=== PATIENT | female | born 1990 | race Caucasian/White ===

== ENCOUNTER 2017-05-03 08:10 | Inpatient (IN) | payer OTHER ==
[2017-05-03] MEDS: DEXTROSE 5%-LACTATED RINGERS 1,000 ML IV SCH (08:15)
[2017-05-03] MEDS ORDERED: AMPICILLIN - 2 GM in SODIUM CHLORIDE 100 ML IVPB ONE (08:30)
[2017-05-03] MEDS: D5W-LR W/ 20 UNITS OXYTOCIN 1,000 ML IV SCH (08:46)
[2017-05-03 09:17] VITALS: BMI 22.6
[2017-05-03] MEDS ORDERED: DEXTROSE 5%-LACTATED RINGERS 1,000 ML IV SCH (09:30)
[2017-05-03] MEDS ORDERED: BISACODYL 10 MG SUPP.RECT RC PRN (09:32)
[2017-05-03] MEDS ORDERED: BENZOCAINE 28 GM HEMORRHOIDAL OINTMENT TP PRN (09:32)
[2017-05-03] MEDS ORDERED: BENZOCAINE 20% 57 GM BOTTLE TP PRN (09:32)
[2017-05-03] MEDS ORDERED: WITCH HAZEL 50% (TUCKS) 40 PAD/JAR PAD TP PRN (09:32)
[2017-05-03] MEDS ORDERED: METHYLERGONOVINE MALEATE 0.2 MG/1 ML AMP IM PRN (09:32)
--- NOTE | 2017-05-03 09:38 | HP ---
Past Medical History - Admission Chief Complaint: Labor pain History of Present Illness: 26 yo @ 39 weeks gestation, EDC 05/09/17, brought by EMT in active labor. She admits to rupture of membrane at 3am. History Source: Patient Limitations to Obtaining History: No Limitations - Past Medical History ...: 4 ...Para: 3 ...EDC by [facility]: 05/09/17 - Past Surgical History Past Surgical History: Yes: None Hx Myomectomy: No Hx Transabdominal Cerclage: No - Smoking History Smoking history: Never smoked Have you smoked in the past 12 months: No - Alcohol/Substance Use Hx Alcohol Use: No History of Substance Use: reports: None - Social History History of Recent Travel: No Home Medications - Allergies Allergies/Adverse Reactions: Allergies Allergy/AdvReac Type Severity Reaction Status Date / Time No Known Drug Allergies Allergy Verified 05/03/17 09:03 Family Disease History - Family Disease History Family History: Unremarkable Review of Systems - Review of Systems Constitutional: reports: No Symptoms Eyes: reports: No Symptoms HENT: reports: No Symptoms Neck: reports: No Symptoms Cardiovascular: reports: No Symptoms Respiratory: reports: No Symptoms Gastrointestinal: reports: No Symptoms Genitourinary: reports: Pain, Other (Rupture of membrane) Breasts: reports: No Symptoms Reported Musculoskeletal: reports: No Symptoms Integumentary: reports: No Symptoms Neurological: reports: No Symptoms Endocrine: reports: No Symptoms Hematology/Lymphatic: reports: No Symptoms Psychiatric: reports: No Symptoms Pain Intensity: 9 Physical Exam - Maternity Vital Signs: Vital Signs Temperature 98.1 F 05/03/17 08:30 Pulse Rate 59 L 05/03/17 08:30 Respiratory Rate 18 05/03/17 08:30 Blood Pressure 142/73 05/03/17 08:30 O2 Sat by Pulse Oximetry (%) Constitutional: Yes: Well Nourished Eyes: Yes: Conjunctiva Clear HENT: Yes: Atraumatic Neck: Yes: Supple Cardiovascular: Yes: Regular Rate and Rhythm Lungs: Clear to auscultation - Abdominal Exam/OB Number of Fetuses: Single Presentation: Vertex Contractions: Yes - Vaginal Exam/OB Dilatation (cm): Fully Effacement (%): 100 Amniotic Membrane Status: Ruptured Amniotic Fluid: Yes: Clear Station: 0 - Physical Exam ...Motor Strength: WNL Psychiatric: Yes: Alert, Oriented Problem List - Problems (1) Status post normal vaginal delivery Code(s): [id number] - Assessment/Plan Active Labor Admit to L&D Anticipate
[2017-05-03 09:39] LABS: BASOPHIL 0.2 % (0-2.0); EOSINOPHIL 0.1 % (0-4.5); MCH 26.9 pg (25.7-33.7); MCHC 32.3 g/dl (32.0-36.0); MEAN CELL VOLUME 83.3 fl (80-96); NEUTROPHILS 79.3 % (42.8-82.8); PLATELET COUNT 138 K/MM3 (134-434); RDW 15.5 % (11.6-15.6); WHITE BLOOD COUNT 7.9 K/mm3 (4.0-10.0)
--- NOTE | 2017-05-03 09:39 | PN ---
Delivery - Delivery Vaginal Delivery: Spontaneous Episiotomy/Laceration: 1st degree EBL (cc): 300 Delivery, Single - [place] Feeding Plan Initial Plan: Elected not to breastfeed exclusively throughout hospitalization Remarks - Remarks Remarks: Normal spontaneous vaginal delivery of a live . Nose / Oropharynx suctioned @ perineum. Cord clamped and cut. Placenta expelled spontaneously intact.
[2017-05-03 09:56] LABS: INR 0.96 (0.82-1.09); PROTHROMBIN TIME (PATIENT) 10.6 SEC (9.98-11.88)
[2017-05-03 09:59] LABS: ACTIVATED PTT 22.1 SECONDS (26.9-34.4)
[2017-05-03 10:02] LABS: ANION GAP 9 (8-16); CALCIUM 8.1 mg/dL (8.5-10.1); CO2 23 mmol/L (21-32); CREATININE 0.6 mg/dL (0.55-1.02); GLUCOSE,RANDOM 150 mg/dL (74-106)
[2017-05-03 10:24] LABS: HIV 1 & 2 AB NEGATIVE; HIV 1 AGp24 NEGATIVE
[2017-05-03] MEDS: IBUPROFEN 600 MG TABLET (FP) PO PRN ×2 (10:30→17:38)
[2017-05-03] MEDS: FERROUS SO4 325 MG TABLET (FP) PO SCH ×2 (11:34→17:13)
[2017-05-03] MEDS: PRENATAL VITAMINS W/ FOLIC ACID TABLET (FP) PO SCH (11:34)
[2017-05-03] MEDS ORDERED: AMPICILLIN - 1 GM in SODIUM CHLORIDE 100 ML IVPB SCH (12:30)
[2017-05-03] MEDS: ACETAMINOPHEN 325 MG TABLET (FP) PO PRN (17:40)
[2017-05-04] MEDS: IBUPROFEN 600 MG TABLET (FP) PO PRN (02:57)
[2017-05-04] MEDS: ACETAMINOPHEN 325 MG TABLET (FP) PO PRN (02:58)
[2017-05-04 07:01] LABS: BASOPHIL 0.8 % (0-2.0); EOSINOPHIL 0.9 % (0-4.5); MCH 27.1 pg (25.7-33.7); MCHC 32.8 g/dl (32.0-36.0); MEAN CELL VOLUME 82.5 fl (80-96); NEUTROPHILS 67.8 % (42.8-82.8); PLATELET COUNT 150 K/MM3 (134-434); RDW 15.9 % (11.6-15.6); WHITE BLOOD COUNT 9.3 K/mm3 (4.0-10.0)
--- NOTE | 2017-05-04 07:26 | PN ---
Post Progress Note Post Day: 1 Type of Delivery: Vital Signs: Vital Signs Temperature 98.6 F 05/04/17 03:27 Pulse Rate 66 05/04/17 03:27 Respiratory Rate 18 05/04/17 03:27 Blood Pressure 108/66 05/04/17 03:27 O2 Sat by Pulse Oximetry (%) Breast Exam: Yes: Soft Uterus: Yes: Fundus Firm Abdomen/GI: Yes: Abdomen soft Lochia: Yes: Rubra Lochia, amount: Small Extremities: Yes: Calves non-tender Perineum: Yes: Intact Activity: Ambulating - Labs Labs: CBC WBC 9.3 K/mm3 (4.0-10.0) 05/04/17 06:25 RBC 3.19 M/mm3 (3.60-5.2) L 05/04/17 06:25 Hgb 8.6 GM/dL (10.7-15.3) L 05/04/17 06:25 Hct 26.3 % (32.4-45.2) L 05/04/17 06:25 MCV 82.5 fl (80-96) 05/04/17 06:25 MCH 27.1 pg (25.7-33.7) 05/04/17 06:25 MCHC 32.8 g/dl (32.0-36.0) 05/04/17 06:25 RDW 15.9 % (11.6-15.6) H 05/04/17 06:25 Plt Count 150 K/MM3 (134-434) 05/04/17 06:25 MPV 11.0 fl (7.5-11.1) 05/04/17 06:25 Neutrophils % 67.8 % (42.8-82.8) 05/04/17 06:25 Lymphocytes % 25.7 % (8-40) D 05/04/17 06:25 Monocytes % 4.8 % (3.8-10.2) 05/04/17 06:25 Eosinophils % 0.9 % (0-4.5) D 05/04/17 06:25 Basophils % 0.8 % (0-2.0) D 05/04/17 06:25 Assessment/Plan as above oob reg diet iron
[2017-05-04] MEDS: FERROUS SO4 325 MG TABLET (FP) PO SCH ×3 (08:16→17:38)
[2017-05-04] MEDS: PRENATAL VITAMINS W/ FOLIC ACID TABLET (FP) PO SCH (10:55)
[2017-05-04] MEDS: DEXTROSE 5%-LACTATED RINGERS 1,000 ML IV SCH (12:28)
[2017-05-04] MEDS: D5W-LR W/ 20 UNITS OXYTOCIN 1,000 ML IV SCH (12:29)
[2017-05-04] MEDS ORDERED: SENNOSIDES/DOCUSATE COMBO (SENNA PLUS) TABLET (UD) PO PRN (22:00)
[2017-05-05 08:55] VITALS: BP 107/65; PULSE 60; TEMP 98.2
[2017-05-05] MEDS: FERROUS SO4 325 MG TABLET (FP) PO SCH ×2 (09:59→11:39)
[2017-05-05] MEDS: PRENATAL VITAMINS W/ FOLIC ACID TABLET (FP) PO SCH (09:59)
[2017-05-05] MEDS: IBUPROFEN 600 MG TABLET (FP) PO PRN (10:01)
[2017-05-05] MEDS: ACETAMINOPHEN 325 MG TABLET (FP) PO PRN (10:02)
--- NOTE | 2017-05-05 11:45 | PN ---
Post Progress Note - Subjective Subjective: no complains Post Day: 2 Type of Delivery: Vital Signs: Vital Signs Temperature 98.2 F 05/05/17 08:54 Pulse Rate 60 05/05/17 08:54 Respiratory Rate 20 05/05/17 08:54 Blood Pressure 107/65 05/05/17 08:54 O2 Sat by Pulse Oximetry (%) 98 05/04/17 09:00 Breast Exam: Yes: Soft. No: Engorged Uterus: Yes: Fundus Firm, Fundus below umbilicus Abdomen/GI: Yes: Tolerating PO Lochia: Yes: Rubra Lochia, amount: Moderate Extremities: Yes: Calves non-tender Perineum: Yes: Intact Activity: Ambulating - Labs Labs: CBC WBC 9.3 K/mm3 (4.0-10.0) 05/04/17 06:25 RBC 3.19 M/mm3 (3.60-5.2) L 05/04/17 06:25 Hgb 8.6 GM/dL (10.7-15.3) L 05/04/17 06:25 Hct 26.3 % (32.4-45.2) L 05/04/17 06:25 MCV 82.5 fl (80-96) 05/04/17 06:25 MCH 27.1 pg (25.7-33.7) 05/04/17 06:25 MCHC 32.8 g/dl (32.0-36.0) 05/04/17 06:25 RDW 15.9 % (11.6-15.6) H 05/04/17 06:25 Plt Count 150 K/MM3 (134-434) 05/04/17 06:25 MPV 11.0 fl (7.5-11.1) 05/04/17 06:25 Neutrophils % 67.8 % (42.8-82.8) 05/04/17 06:25 Lymphocytes % 25.7 % (8-40) D 05/04/17 06:25 Monocytes % 4.8 % (3.8-10.2) 05/04/17 06:25 Eosinophils % 0.9 % (0-4.5) D 05/04/17 06:25 Basophils % 0.8 % (0-2.0) D 05/04/17 06:25 Assessment/Plan Anemia stable counselled to take po iron & pnv . discharge today rtc 6 weeks
== END 2017-05-05 12:30 | disposition home or self-care (01) | DRG 560 ==
LOC: JLDR 08:10 → J3W 11:00
PROVIDERS: ADMIT Obstetrics & Gynecology; ATTEND Obstetrics & Gynecology
PROC: 10E0XZZ Delivery of Products of Conception, External Approach (ICD-10-PCS; principal; 2017-05-03)
PROC: 0W8NXZZ Division of Female Perineum, External Approach (ICD-10-PCS; 2017-05-03)
PROC: 0HQ9XZZ Repair Perineum Skin, External Approach (ICD-10-PCS; 2017-05-03)
DX: O70.0 First degree perineal laceration during delivery (principal); Z3A.39 39 weeks gestation of pregnancy; Z37.0 Single live birth
CPT/HCPCS: 36415; 59409; 80048; 85025; 85610; 85730; 86593; 86850; 86900; 86901; 87389